=== PATIENT | female | born 1930 | race Caucasian/White ===

== ENCOUNTER 2017-10-31 06:51 | Inpatient (IN) | payer BC ==
[~2017-10-31] VITALS: Ht 162.6 cm; Wt 92.2 kg
[~2017-10-31 06:51] MED LIST: HYDR25TA35 PO; LEVO25TA6 PO; LORA-654 PO; NIAC500T71 PO; PANT40T PO; POTA10TA51 PO; [UNRECOGNIZED DRUG - CODE] PO
[2017-10-31] MEDS ORDERED: LIDOCAINE 2%HCL (LOCAL ANESTH.) INJ 20ML MDV ONE (07:51)
[2017-10-31] MEDS ORDERED: VANCOMYCIN 1GM/250ML 250 ML IV ONE (08:06)
[2017-10-31] MEDS ORDERED: MIDAZOLAM HCL 1MG/1ML-2 ML VIAL ONE (08:24)
[2017-10-31] MEDS ORDERED: fentaNYL CITRATE 100 MCG/2 ML VL ONE (08:24)
[2017-10-31] MEDS ORDERED: VANCOMYCIN HCL 1000 MG VL ONE (08:24)
[2017-10-31] MEDS ORDERED: BACITRACIN INJ 50000 UNIT VIAL ONE (08:25)
[2017-10-31] MEDS ORDERED: MORPHINE SULFATE 4 MG/ML SYR/VIAL IV PRN (10:15)
[2017-10-31] MEDS ORDERED: LORazepam 0.5 MG TAB PO PRN (10:15)
[2017-10-31] MEDS ORDERED: HYDROcodone-ACET 5/325MG TAB PO PRN (10:15)
[2017-10-31] MEDS ORDERED: NITROGLYCERIN 0.4 MG SL TAB SL PRN (10:15)
[2017-10-31] MEDS ORDERED: ACETAMINOPHEN 325 MG TAB PO PRN (10:15)
[2017-10-31] MEDS ORDERED: hydrALAZINE HCL 20 MG/ML VL ONE (10:54)
[2017-10-31] MEDS ORDERED: hydrALAZINE HCL 20 MG/ML VL IV ONE (11:00)
[2017-10-31] MEDS ORDERED: hydrALAZINE HCL 20 MG/ML VL IV PRN (11:00)
[2017-10-31] MEDS: ceFAZolin 1GM/100ML 50 ML IV SCH ×2 (12:25→18:04)
[2017-10-31 13:58] VITALS: BP 119/81
[2017-10-31 14:11] VITALS: BP 119/81
[2017-10-31] MEDS: POTASSIUM CHL 10 Meq TABLET PO SCH ×2 (14:54→22:46)
[2017-10-31 16:05] VITALS: BP 146/60
[2017-10-31] MEDS ORDERED: CHLORTHALIDONE PO SCH (18:00)
[2017-10-31] MEDS ORDERED: ATENOLOL PO SCH (18:00)
[2017-10-31 20:00] VITALS: BP 158/72
[2017-10-31 22:00] VITALS: BP 158/72
[2017-10-31] MEDS ORDERED: LORazepam 0.5 MG TAB PO SCH (22:00)
[2017-10-31] MEDS: hydrALAZINE HCL 25 MG TAB PO SCH (22:45)
[2017-10-31] MEDS: Niacin SR 500mg TAB PO SCH (22:47)
[2017-10-31] MEDS: DOXYCYCLINE 100 MG TAB/CAP PO SCH (22:47)
[2017-11-01 05:00] VITALS: BP 150/70
[2017-11-01] MEDS ORDERED: LEVOTHYROXINE SODIUM 25 MCG TAB PO SCH (07:00)
[2017-11-01 08:34] VITALS: BP 153/63
[2017-11-01] MEDS: hydrALAZINE HCL 25 MG TAB PO SCH (09:56)
[2017-11-01] MEDS: DOXYCYCLINE 100 MG TAB/CAP PO SCH (09:56)
[2017-11-01] MEDS: POTASSIUM CHL 10 Meq TABLET PO SCH (09:56)
[2017-11-01] MEDS: Niacin SR 500mg TAB PO SCH (09:58)
[2017-11-01] MEDS ORDERED: PANTOPRAZOLE 40 MG TAB PO SCH (10:00)
[2017-11-01 12:59] VITALS: BP 151/73
== END 2017-11-01 14:50 | disposition home or self-care (01) | DRG 262 ==
LOC: CATH 06:51 → TELE-WESTW 06:52
PROVIDERS: ADMIT Specialist; ATTEND Specialist
PROC: B5171ZZ Fluoroscopy of Left Subclavian Vein using Low Osmolar Contrast (ICD-10-PCS; principal; 2017-10-31)
PROC: 4B02XSZ Measurement of Cardiac Pacemaker, External Approach (ICD-10-PCS; 2017-10-31)
PROC: 02HK3JZ Insertion of Pacemaker Lead into Right Ventricle, Percutaneous Approach (ICD-10-PCS; 2017-10-31)
DX: T82.110A Breakdown (mechanical) of cardiac electrode, initial encounter (principal); R00.1 Bradycardia, unspecified; I11.9 Hypertensive heart disease without heart failure; E03.9 Hypothyroidism, unspecified; I45.9 Conduction disorder, unspecified; Y83.8 Other surgical procedures as the cause of abnormal reaction of the patient, or of later complication, without mention of misadventure at the time of the procedure; E78.5 Hyperlipidemia, unspecified; Z82.49 Family history of ischemic heart disease and other diseases of the circulatory system; Z79.899 Other long term (current) drug therapy; Z95.0 Presence of cardiac pacemaker; Y92.89 Other specified places as the place of occurrence of the external cause
CPT/HCPCS: 33216; 71045; 93005; 99152; J0690; J2250